=== PATIENT | male | born 1965 | race Caucasian/White ===

== ENCOUNTER → 2021-04-24 12:58 | Outpatient (CLI) | payer OTHER, SELFPAY ==
[2021-04-24 15:54] LABS: COVID19 -Nasal RAPID Negative (Negative)
== END ==
PROVIDERS: Visit Provider Physician Assistant
DX: Z01.812 Encounter for preprocedural laboratory examination (principal); Z20.822 Contact with and (suspected) exposure to COVID-19
CPT/HCPCS: 87635

== ENCOUNTER 2021-04-25 11:49 | Day surgery (SDC) | payer OTHER, SELFPAY ==
--- NOTE | 2021-04-25 | PATH_ITS ---
[facility] Accession Number: [id number] . 01 Material submitted: . stomach - ANTRAL POLYP . 02 Diagnosis: Antrum, Polyp, Biopsy: Gastric hyperplastic polyp. No evidence of Helicobacter on H/E stain. Negative for intestinal metaplasia. Negative for dysplasia and malignancy. MRV 04/27/2021 0936 Local . 02 Electronically signed: . Nga Kiser MD, Pathologist NPI- [id number] . 01 Gross description: . ANTRAL POLYP: Received in formalin is 1 fragment(s) of calderón, soft tissue measuring 0.4 x 0.4 x 0.3 cm submitted entirely in 1 cassette(s) /KOURTNEY 04/26/2021 0340 Local . 02 Pathologist provided ICD-10: Z86.010 . 02 CPT . 895278 Performed at: 01 [facility] [address] [id number] MD Marco Correa MD Phone: [phone] Performed at: 02 [facility] [address] [place], [place] [id number] MD Nga Kiser MD Phone: [phone]
[2021-04-25] MEDS: SODIUM CHLORIDE 0.9% 1,000 ML 84 ML IV (12:32)
[2021-04-25 12:36] VITALS: BP 142/84; PULSE 84; RESP 18; TEMP 36.8; O2SAT 100; BMI 20.7
--- NOTE | 2021-04-25 13:51 | PM.HP.1 ---
History of Present Illness History of Present Illness Date Patient Seen: 04/25/21 Time Patient Seen: 13:51 Chief complaint: SDC Narrative: I reviewed my note from April 03, 2021. He has been experiencing reflux that has been partially responsive to antisecretory therapy. There is some concern about the prospect of a sizable hiatal hernia. He has a personal history of colon polyps and a family history of colon cancer. Therefore EGD and colonoscopy are being pursued. He has improved with 20 mg of Pepcid daily thus far. Patient History Family & Social History Social History: household members spouse Tobacco & Substance use: Smoking Status Never smoker alcohol intake current alcohol intake frequency a few times a month Substance Use Type does not use Meds Home Medications and Allergies Home Medications Medication Instructions Recorded Confirmed Type albuterol sulfate 90 mcg/actuation 90 mcg INHALATION 4XW 04/25/21 04/25/21 History aerosol inhaler famotidine 20 mg tablet (Pepcid) 20 mg PO DAILY 04/25/21 04/25/21 History Allergies Allergy/AdvReac Type Severity Reaction Status Date / Time No Known Drug Allergies Allergy Verified 04/25/21 12:28 Review of Systems Review of Systems ROS: Yes All systems reviewed with the patient and are negative except as otherwise documented Exam Vital Signs (past 8 hours): - 04/25/21 12:36 Temperature 98.2 F Pulse Rate 84 Respiratory Rate 18 Blood Pressure 142/84 H Pulse Oximetry 100 Oxygen Delivery Method Room Air Const General: cooperative and comfortable Orientation: alert HENMT Head: normocephalic Ears: external ears normal Nose: external nose normal Face and sinus: normal facial exam Mouth: oral mucosae normal Eyes General: appearance normal, both eyes and all related structures Neck Neck: normal visual inspection Chest Chest: normal inspection of the chest Resp Effort & Inspection: normal respiratory effort Auscultation: clear to auscultation bilaterally Cardio Rate: regular rate Rhythm: regular rhythm Heart Sounds: no murmurs GI Inspection: normal to inspection Palpation: soft and No tender Auscultation: normal bowel sounds Skin General: no rashes or lesions noted and No jaundice Neuro General: patient alert and moves all extremities Cognition: normal cognition Speech: speech normal Extrem General: no pedal edema Psych Appearance: grossly normal Assessment & Plan Assessment & Plan narrative: Refractory reflux, family history colon cancer, personal history of colon polyps EGD and colonoscopy today.
--- NOTE | 2021-04-25 13:54 | PM.PREOP ---
Pre-operative Note COVID-19 COVID-19 status: Negative Result date/Date tested (Pos, Neg/Pending): 04/24/21 Interval Note History & Physical reviewed/Exam performed by Physician: Yes Changes to H&P: No ASA Class (for procedural sedation): II
[2021-04-25] MEDS: fentaNYL 250 MCG/5 ML INJ IV (13:58)
[2021-04-25] MEDS: LIDOCAINE 4% SOLN 50 ML 20 ML TOP (13:58)
[2021-04-25] MEDS: MIDAZOLAM 5 MG/5 ML VIAL IV (13:59)
--- NOTE | 2021-04-25 14:29 | P.OP.ENDO_ITS ---
Operative Date/Time/Diagnoses Date of procedure: 04/25/21 Time of procedure: 14:29 Pre-op diagnosis: Refractory GERD personal history of colon polyps family history colon cancer Post-op diagnosis: same Procedure & Clinicians Study performed: Esophagogastroduodenoscopy with hot snare polypectomy and a colonoscopy Same procedure as scheduled: Yes Indications: Refractory GERD, family history of colon cancer, personal history colon polyps Surgeon: Dominic Medina Procedure Notes SCOAP/Timeout: Done Procedure in detail: After the risks and benefits were explained, written and verbal informed consent was obtained. The patient was brought into the procedure room and placed into the left lateral decubitus position. Conscious sedation medication was applied as per nursing documentation. The scope was introduced into the mouth through the bite block and advanced under direct visualization to the 2nd portion of the duodenum. The scope was slowly withdrawn carefully examining the mucosa for any defects or lesions. Re troflexed views were accomplished in the stomach. The stomach was decompressed, the scope was then removed from the patient who tolerated the procedure well. The patient was turned around. Digital rectal examination was accomplished. The scope was introduced into the patient and advanced under direct visualization to the cecum as identified by the appendiceal orifice and ileocecal valve. The scope was slowly withdrawn to carefully examine the mucosa for any defects or lesions. Comprehensive imaging was accomplished throughout the rectum including the dentate line. The colon was decompressed, the scope was then removed from the patient who tolerated the procedure well. 5 mg Versed, 150 mcg fentanyl Bowel prep adequate Scope withdrawal time: 7 minutes Sedation minutes: 31 Complications: none Impression: 1. Duodenum: This appeared normal from the bulb through to the 2nd portion. 2. Stomach: There is an approximately 6-7 mm sessile polyp in the antrum removed with hot snare. No other significant pathology was appreciated throughout the stomach. Retroflexed views confirmed the presence of a small sliding hiatal hernia 3. Esophagus: The squamocolumnar junction generally correlated with the top of the gastric folds. GEJ was at approximately 44 cm from the incisors. No acute erosive features identified at this time. No strictures no mass lesions. 4. Colon: There was some diverticulosis noted in the sigmoid. The patient had a fairly tense anal sphincter mechanism. No masses no significant hemorrhoidal engorgement. I did not appreciate any significant polyps mass lesions or inflammatory features identified throughout the colon. Endoscopic diagnosis 1. Small sliding hiatal hernia 2. Gastric polyp 3. Diverticulosis Post-procedure Recommendations: Colonscopy in 5 years Plan for aftercare: 1. Await histopathology 2. Surveillance EGD may be indicated following pathology review. 3. Repeat colonoscopy 5 years 4. Continue Pepcid for the next couple of weeks and then taper off. Disposition: PACU
[2021-04-25 14:32] VITALS: BP 126/69; PULSE 101; RESP 16; TEMP 36.2; O2SAT 100
[2021-04-25 14:37] VITALS: BP 119/67; PULSE 87; RESP 14; O2SAT 100
[2021-04-25 14:42] VITALS: BP 123/75; BP 132/79; PULSE 103; PULSE 97; RESP 14; RESP 16; O2SAT 100
[2021-04-25 14:51] VITALS: BP 122/70; PULSE 84; RESP 16; TEMP 36.6; O2SAT 100
[2021-04-25 15:10] VITALS: BP 121/75; PULSE 76; RESP 16; TEMP 36.5; O2SAT 99
== END 2021-04-25 15:32 | disposition home or self-care (01) ==
PROVIDERS: PCP Internal Medicine; Referring Provider Internal Medicine Gastroenterology; Visit Provider Internal Medicine Gastroenterology
PROC: 0DJ08ZZ Inspection of Upper Intestinal Tract, Via Natural or Artificial Opening Endoscopic (ICD-10-PCS; CPT 43235; principal; 2021-04-25 13:00)
PROC: 0DJD8ZZ Inspection of Lower Intestinal Tract, Via Natural or Artificial Opening Endoscopic (ICD-10-PCS; CPT 45378; 2021-04-25 13:00)
DX: Z12.11 Encounter for screening for malignant neoplasm of colon (principal); K21.9 Gastro-esophageal reflux disease without esophagitis; Z86.010 Personal history of colon polyps; Z80.0 Family history of malignant neoplasm of digestive organs; J45.909 Unspecified asthma, uncomplicated; K57.30 Diverticulosis of large intestine without perforation or abscess without bleeding; K31.7 Polyp of stomach and duodenum; K44.9 Diaphragmatic hernia without obstruction or gangrene
CPT/HCPCS: 43251; 45378; J2250; J3010